=== PATIENT | male | born 1940 | race Caucasian/White ===

== ENCOUNTER 2017-08-28 15:45 | Emergency (ER) | END 2017-08-28 17:35 | disposition home or self-care (01) ==

== ENCOUNTER 2017-09-04 17:01 | Emergency (ER) | payer MEDICARE ==
[~2017-09-04] VITALS: Ht 185.4 cm; Wt 142.0 kg
[~2017-09-04 17:01] MED LIST: ASPI325 PO; ASPI81CH PO; ASPI81EC PO; ATOR20 PO; CARV25; Coq-10100 MG PO; DILT120; DILT120 PO; ENAL10; ENAL5 PO; FAMO20 PO; FINA5 PO; FURO20 PO; FURO40; FURO40 PO; GLIP10; Lisinopril2.5 MG PO; MULTIVITAMIN; NATURAL LUTEIN20 MG PO; NEBI10 PO; Norco 5-325 Ta1 EACH PO; OMEP40CA12; POTCHL10ER PO; PRED20; SULTRIDS; Sulfamethoxazo1 EAC1; TAMS.4ER PO; WARF4 PO
[2017-09-04 17:54] LABS: BASOPHILS ABSOLUTE AUTO 0.06 K/mm3 (0.00-0.23); BASOPHILS PERCENT AUTO 1 % (0-2); EOSINOPHILS ABSOLUTE AUTO 0.12 K/mm3 (0.00-0.68); EOSINOPHILS PERCENT AUTO 1 % (0-6); Hematocrit 37.4 % (37.0-53.0); Hemoglobin 11.2 g/dL (13.5-17.5); IMMATURE GRAN ABSOLUTE AUTO 0.06 K/mm3 (0.00-0.10); IMMATURE GRAN PERCENT AUTO 1 % (0-1); LYMPHOCYTES ABSOLUTE AUTO 1.01 K/mm3 (0.84-5.20); LYMPHOCYTES PERCENT AUTO 12 % (21-46); MONOCYTES ABSOLUTE AUTO 0.97 K/mm3 (0.16-1.47); MONOCYTES PERCENT AUTO 11 % (4-13); Mean Corpuscular HGB 25.7 pg (26.0-34.0); Mean Corpuscular HGB Conc 29.9 g/dL (31.5-36.5); Mean Corpuscular Volume 86 fL (80-100); Mean Platelet Volume 10.6 fL (9.1-12.4); NEUTROPHILS ABSOLUTE AUTO 6.44 K/mm3 (1.96-9.15); NEUTROPHILS PERCENT AUTO 74 % (41-73); Platelet Count 155 K/mm3 (150-400); RDW Coefficient Variation 15.6 % (11.7-14.2); RDW Standard Deviation 48.5 fL (35.1-46.3); Red Blood Cell Count 4.36 M/mm3 (4.30-5.90); White Blood Cell Count 8.66 K/mm3 (4.00-11.30)
[2017-09-04] MEDS ORDERED: NIFE30ER PO (17:58)
[2017-09-04 18:06] LABS: Alanine Aminotransfer (ALT/SGP 14 U/L (12-78); Albumin, Blood 3.2 g/dL (3.4-5.0); Albumin/Globulin Ratio 0.7 (0.8-1.8); Alk Phos 66 U/L (50-136); Anion Gap 10 mmol/L (6-16); Aspartate Aminotrans (AST/SGOT 13 U/L (12-37); Bilirubin, Total 0.5 mg/dL (0.1-1.0); Blood Urea Nitrogen 27 mg/dL (8-24); Bun/Creatinine Ratio 8.2 (12.0-20.0); CO2, Blood 31 mmol/L (21-32); Calcium, Blood 8.4 mg/dL (8.5-10.1); Chloride, Blood 93 mmol/L (98-108); Creatinine, Blood 3.28 mg/dL (0.60-1.20); Globulin, Blood 4.4 g/dL (2.2-4.0); Glomerular Filtration Rate 20 (60-); Glucose, Blood 221 mg/dL (70-99); Magnesium, Blood 2.1 mg/dL (1.6-2.4); Potassium, Blood 3.7 mmol/L (3.5-5.5); Sodium, Blood 134 mmol/L (136-145); Total Protein, Blood 7.6 g/dL (6.4-8.2); Troponin I <0.015 ng/mL (0.000-0.040)
[2017-09-04 18:12] LABS: International Normalized Ratio 1.66; Prothrombin Time Results 17.5 Sec (9.7-11.5)
[2018-04-23] MEDS ORDERED: COENZYME Q-10200 MG PO (19:56)
[2018-04-23] MEDS ORDERED: WARF6 PO (19:59)
== END 2017-09-04 20:17 | disposition home or self-care (01) ==
LOC: ER 17:01
PROVIDERS: Emergency Medicine
DX: R55 Syncope and collapse (principal); E87.8 Other disorders of electrolyte and fluid balance, not elsewhere classified; I10 Essential (primary) hypertension; Z79.899 Other long term (current) drug therapy; Z79.01 Long term (current) use of anticoagulants; Z87.891 Personal history of nicotine dependence
CPT/HCPCS: 80053; 83735; 83880; 84484; 85025; 85610; 93005; 93010; 99283

== ENCOUNTER 2017-12-13 11:13 | Emergency (ER) | payer MEDICARE ==
[~2017-12-13] VITALS: Ht 188 cm; Wt 163.3 kg
[~2017-12-13 11:13] MED LIST changes: +Coumadin1 MG; +FINA5; -FINA5 PO; +NIFE30ER PO; -WARF4 PO
== END 2017-12-13 12:04 | disposition home or self-care (01) ==
LOC: ER 11:13
DX: M25.512 Pain in left shoulder (principal); I10 Essential (primary) hypertension; E11.9 Type 2 diabetes mellitus without complications; Z79.899 Other long term (current) drug therapy; Z79.01 Long term (current) use of anticoagulants
CPT/HCPCS: 73030; 99283

== ENCOUNTER 2018-07-25 13:06 | Emergency (ER) | payer MEDICARE ==
[~2018-07-25] VITALS: Ht 188 cm; Wt 145.2 kg
[~2018-07-25 13:06] MED LIST changes: +COENZYME Q-10200 MG PO; -Coumadin1 MG; -FINA5; +FINA5 PO; +WARF4 PO; +WARF6 PO
[2018-07-25] MEDS ORDERED: FURO40 PO (14:52)
[2018-07-25] MEDS ORDERED: GLIP5 (14:52)
== END 2018-07-25 15:15 | disposition home or self-care (01) ==
LOC: ER 13:06
DX: J40 Bronchitis, not specified as acute or chronic (principal); I10 Essential (primary) hypertension; Z79.01 Long term (current) use of anticoagulants; Z79.899 Other long term (current) drug therapy
CPT/HCPCS: 71046; 99283-25

== ENCOUNTER 2018-10-05 09:04 | Day surgery (SDC) | payer MEDICARE ==
[~2018-10-05] VITALS: Ht 188 cm; Wt 145.5 kg
[~2018-10-05 09:04] MED LIST changes: +GLIP5; +PIOG15 PO; -WARF6 PO
== END 2018-10-05 15:15 | disposition home or self-care (01) ==
LOC: MHTC 09:04
DX: I12.0 Hypertensive chronic kidney disease with stage 5 chronic kidney disease or end stage renal disease (principal); E11.22 Type 2 diabetes mellitus with diabetic chronic kidney disease; N18.6 End stage renal disease; I48.91 Unspecified atrial fibrillation; G47.30 Sleep apnea, unspecified; E66.01 Morbid (severe) obesity due to excess calories; Z99.89 Dependence on other enabling machines and devices; Z99.2 Dependence on renal dialysis; Z88.8 Allergy status to other drugs, medicaments and biological substances; Z79.899 Other long term (current) drug therapy; Z79.01 Long term (current) use of anticoagulants
CPT/HCPCS: J1644; J1940; J7040

== ENCOUNTER 2018-10-11 10:00 | Inpatient (IN) | payer MEDICARE, OTHER ==
[~2018-10-11] VITALS: Ht 188 cm; Wt 146.1 kg
[~2018-10-11 10:00] MED LIST changes: +WARF6 PO
[2018-10-11] MEDS ORDERED: FERRIC CITRATE210 MG PO (10:18)
[2018-10-11 10:27] LABS: BASOPHILS ABSOLUTE AUTO 0.06 K/mm3 (0.00-0.23); BASOPHILS PERCENT AUTO 1 % (0-2); EOSINOPHILS PERCENT AUTO 3 % (0-6); Hematocrit 35.4 % (37.0-53.0); Hemoglobin 10.9 g/dL (13.5-17.5); IMMATURE GRAN ABSOLUTE AUTO 0.08 K/mm3 (0.00-0.10); IMMATURE GRAN PERCENT AUTO 1 % (0-1); LYMPHOCYTES PERCENT AUTO 16 % (21-46); MONOCYTES ABSOLUTE AUTO 1.15 K/mm3 (0.16-1.47); MONOCYTES PERCENT AUTO 12 % (4-13); Mean Corpuscular HGB 26.8 pg (26.0-34.0); Mean Corpuscular HGB Conc 30.8 g/dL (31.5-36.5); Mean Corpuscular Volume 87 fL (80-100); NEUTROPHILS ABSOLUTE AUTO 6.35 K/mm3 (1.96-9.15); NEUTROPHILS PERCENT AUTO 67 % (41-73); Platelet Count 191 K/mm3 (150-400); RDW Coefficient Variation 16.6 % (11.7-14.2); RDW Standard Deviation 52.1 fL (35.1-46.3); Red Blood Cell Count 4.07 M/mm3 (4.30-5.90); White Blood Cell Count 9.44 K/mm3 (4.00-11.30)
[2018-10-11 10:49] LABS: Albumin, Blood 3.3 g/dL (3.4-5.0); Albumin/Globulin Ratio 0.8 (0.8-1.8); Bilirubin, Total 0.5 mg/dL (0.1-1.0); Bun/Creatinine Ratio 10.6 (12.0-20.0); Creatinine, Blood 6.95 mg/dL (0.60-1.20); Globulin, Blood 4.1 g/dL (2.2-4.0); Potassium, Blood 3.8 mmol/L (3.5-5.5); Total Protein, Blood 7.4 g/dL (6.4-8.2)
[2018-10-11 12:34] LABS: Base Excess Venous 6.2 mmol/L; Bicarbonate Venous 27.9 mmol/L (24.0-30.0); PCO2 Venous 60.9 mmHg (38-42); PO2 Venous 42.2 mmHg (38-42); pH Blood Venous 7.33 (7.34-7.37)
[2018-10-11 12:49] LABS: International Normalized Ratio 1.07; Prothrombin Time Results 11.3 Sec (9.7-11.5)
[2018-10-11] MEDS ORDERED: FURO40 PO (13:31)
[2018-10-11] MEDS ORDERED: WARF4 PO (13:33)
[2018-10-11] MEDS ORDERED: PIOG15 PO (16:53)
--- NOTE | 2018-10-11 18:45 | NUR ---
SHIFT SUMMARY TERESA ARRIVED FROM ED AROUND 430PM. DENIES PAIN EXCEPT CHRONIC R KNEE AND SHOULDER PAIN. , SAYS HE FEELS BACK TO BASELINE STRENGTH BACA. SBA TO BR. TELE SHOWED AFIB AT 106. CBG WNL THIS SHIFT. TO HAVE CT TOMORROW AND THEN HD IMMEDIATELY AFTERWARDS PER BLUEPRINT REPRODUCER. WCTM
[2018-10-11 20:31] LABS: Adenovirus Not Detected (NOT DETECT); Coronavirus 229E Not Detected (NOT DETECT); Coronavirus HKU1 Not Detected (NOT DETECT); Coronavirus NL63 Not Detected (NOT DETECT); Coronavirus OC43 Not Detected (NOT DETECT); Human Metapneumovirus Not Detected (NOT DETECT); Human Rhinovirus/Enterovirus Not Detected (NOT DETECT); Influenza A Not Detected (NOT DETECT); Influenza A/H1 Not Detected (NOT DETECT)
[2018-10-11 20:32] LABS: Bordetella pertussis Not Detected (NOT DETECT); Chlamydophila pneumoniae Not Detected (NOT DETECT); Influenza A/2009-H1 Not Detected (NOT DETECT); Influenza A/H3 Not Detected (NOT DETECT); Influenza B Not Detected (NOT DETECT); Mycoplasma pneumoniae Not Detected (NOT DETECT); Parainfluenza Virus 1 Not Detected (NOT DETECT); Parainfluenza Virus 2 Not Detected (NOT DETECT); Parainfluenza Virus 3 Not Detected (NOT DETECT); Parainfluenza Virus 4 Not Detected (NOT DETECT); Respiratory Syncytial Virus Not Detected (NOT DETECT)
--- NOTE | 2018-10-12 04:13 | NUR ---
Pt has slept most of shift without c/o discomfort. O2 on at 2 liters per pt's request. Pt on telemetry- Afib 90-100 with pvc's. Blood sugar at hs was 148 with no coverage needed. Pt to have dialysis in am after having PE test c contrast.
[2018-10-12 05:25] LABS: BASOPHILS ABSOLUTE AUTO 0.05 K/mm3 (0.00-0.23); BASOPHILS PERCENT AUTO 1 % (0-2); EOSINOPHILS ABSOLUTE AUTO 0.35 K/mm3 (0.00-0.68); EOSINOPHILS PERCENT AUTO 4 % (0-6); Hematocrit 36.9 % (37.0-53.0); Hemoglobin 11.1 g/dL (13.5-17.5); IMMATURE GRAN ABSOLUTE AUTO 0.06 K/mm3 (0.00-0.10); IMMATURE GRAN PERCENT AUTO 1 % (0-1); LYMPHOCYTES PERCENT AUTO 20 % (21-46); MONOCYTES ABSOLUTE AUTO 1.17 K/mm3 (0.16-1.47); MONOCYTES PERCENT AUTO 14 % (4-13); Mean Corpuscular HGB 26.4 pg (26.0-34.0); Mean Corpuscular HGB Conc 30.1 g/dL (31.5-36.5); Mean Corpuscular Volume 88 fL (80-100); Mean Platelet Volume 10.9 fL (9.1-12.4); NEUTROPHILS ABSOLUTE AUTO 5.18 K/mm3 (1.96-9.15); NEUTROPHILS PERCENT AUTO 61 % (41-73); Platelet Count 209 K/mm3 (150-400); RDW Coefficient Variation 16.5 % (11.7-14.2); RDW Standard Deviation 53.6 fL (35.1-46.3); White Blood Cell Count 8.51 K/mm3 (4.00-11.30)
[2018-10-12 05:52] LABS: International Normalized Ratio 1.04
[2018-10-12 06:02] LABS: Bun/Creatinine Ratio 11.9 (12.0-20.0); Calcium, Blood 9.5 mg/dL (8.5-10.1); Creatinine, Blood 6.97 mg/dL (0.60-1.20); Potassium, Blood 3.9 mmol/L (3.5-5.5)
--- NOTE | 2018-10-12 14:18 | NUR ---
IV DC'D THE PT HAD ONE IV IN HIS LEFT HAND THAT WAS NOT PATENT, RN DC'D THIS ONCE THE PT CAME BACK FROM DIALYSIS. HE ALSO HAD AN IV IN HIS RIGHT FOREARM THAT WAS REMOVED DURING DIALYSIS. THE PT NOW HAS A NO IV ACCESS NEEDED ORDER.
--- NOTE | 2018-10-12 14:20 | NUR ---
THE PATIENT HAS NO COMPLAINTS OF PAIN, DIZZINESS OR LIGHTHEADED. HE WENT TO DIALYSIS THIS MORNING. HE IS BACK IN HIS HOSPITAL ROOM VISITING WITH HIS SON. NO IV ACCESS IS NEEDED. THE PLAN IS FOR THE PATIENT TO GO TO DIALYSIS AT THE HOSPITAL TOMORROW AND THEN BE DISCHARGED HOME. THE PT HAS TELEMETRY ON, READING AFIB WITH PVC'S AT 97 BPM PER SKEIN [employer] DYER HELPER. THE PT HAD A CT PE STUDY THIS MORNING. PT IS ON RA TODAY BUT WAS REPORTED TO BE SOB LAST NIGHT AND THE RN PUT HIM ON 2L O2 VIA NC. WILL CONTINUE TO MONITOR.
--- NOTE | 2018-10-12 17:27 | NUR ---
RT SET THE PT UP WITH A CPAP. NO COMPLAINTS. WILL CONTINUE TO MONITOR.
--- NOTE | 2018-10-12 21:52 | NUR ---
Insulin verifed by Shruti roberts. Pt got 2 units humalog for blood sugar of 238.
--- NOTE | 2018-10-13 03:44 | NUR ---
shift summary: Pt on cpap at hs but keeps setting the continuous pulse ox off. Pt tosses and turns alot and states that the bed is very uncomfortable. Pt changed to recliner and pt states he is much more comfortable. Pt back on cpap with O2 extension tubing. Pt now appears to be comfortable and is tolerating the cpap well. Pt has not set off the continuous pulse oximeter since changing to recliner.
[2018-10-13 05:15] LABS: BASOPHILS ABSOLUTE AUTO 0.04 K/mm3 (0.00-0.23); BASOPHILS PERCENT AUTO 1 % (0-2); EOSINOPHILS ABSOLUTE AUTO 0.33 K/mm3 (0.00-0.68); EOSINOPHILS PERCENT AUTO 5 % (0-6); Hematocrit 34.8 % (37.0-53.0); Hemoglobin 10.6 g/dL (13.5-17.5); IMMATURE GRAN ABSOLUTE AUTO 0.05 K/mm3 (0.00-0.10); IMMATURE GRAN PERCENT AUTO 1 % (0-1); LYMPHOCYTES ABSOLUTE AUTO 1.61 K/mm3 (0.84-5.20); LYMPHOCYTES PERCENT AUTO 22 % (21-46); MONOCYTES ABSOLUTE AUTO 1.01 K/mm3 (0.16-1.47); MONOCYTES PERCENT AUTO 14 % (4-13); Mean Corpuscular HGB 26.8 pg (26.0-34.0); Mean Corpuscular HGB Conc 30.5 g/dL (31.5-36.5); Mean Corpuscular Volume 88 fL (80-100); NEUTROPHILS ABSOLUTE AUTO 4.27 K/mm3 (1.96-9.15); NEUTROPHILS PERCENT AUTO 59 % (41-73); Platelet Count 179 K/mm3 (150-400); RDW Coefficient Variation 16.3 % (11.7-14.2); RDW Standard Deviation 53.2 fL (35.1-46.3); Red Blood Cell Count 3.95 M/mm3 (4.30-5.90); White Blood Cell Count 7.31 K/mm3 (4.00-11.30)
[2018-10-13 05:29] LABS: International Normalized Ratio 1.17; Prothrombin Time Results 12.2 Sec (9.7-11.5)
[2018-10-13 05:46] LABS: Magnesium, Blood 2.7 mg/dL (1.6-2.4)
[2018-10-13 05:49] LABS: Albumin, Blood 3.1 g/dL (3.4-5.0); Anion Gap 10 mmol/L (6-16); Blood Urea Nitrogen 61 mg/dL (8-24); Bun/Creatinine Ratio 10.4 (12.0-20.0); CO2, Blood 31 mmol/L (21-32); Calcium, Blood 9.3 mg/dL (8.5-10.1); Chloride, Blood 95 mmol/L (98-108); Creatinine, Blood 5.85 mg/dL (0.60-1.20); Glomerular Filtration Rate 10 (60-); Glucose, Blood 110 mg/dL (70-99); Phosphorus, Blood 7.2 mg/dL (2.5-4.9); Potassium, Blood 4.2 mmol/L (3.5-5.5); Sodium, Blood 136 mmol/L (136-145)
--- NOTE | 2018-10-13 13:10 | NUR ---
Met pt in bed and is on dialysis , pt is doing well and may go home today , said the pt., encouraged pt. and offered prayers for the pt.
[2018-10-13] MEDS ORDERED: BISA10S PR (15:33)
[2018-10-13] MEDS ORDERED: DOCU100 PO (15:34)
[2018-10-13] MEDS ORDERED: ONDA4ODT MM (15:34)
[2018-10-13] MEDS ORDERED: SEVEC800 PO (15:34)
== END 2018-10-13 16:07 | disposition home or self-care (01) | DRG 189 ==
LOC: ER 10:00 → MEDS 10:01 → ENPENDDIS 10-13 10:38 → MEDS 10-13 16:07
PROVIDERS: Emergency Medicine; Internal Medicine Nephrology; Pharmacist; ADMIT Hospitalist
PROC: 5A1D70Z Performance of Urinary Filtration, Intermittent, Less than 6 Hours Per Day (ICD-10-PCS; principal; 2018-10-11)
PROC: 5A1D70Z Performance of Urinary Filtration, Intermittent, Less than 6 Hours Per Day (ICD-10-PCS; 2018-10-13)
DX: J96.21 Acute and chronic respiratory failure with hypoxia (principal); N18.6 End stage renal disease; I13.2 Hypertensive heart and chronic kidney disease with heart failure and with stage 5 chronic kidney disease, or end stage renal disease; J98.11 Atelectasis; Z68.43 Body mass index [BMI] 50.0-59.9, adult; E11.22 Type 2 diabetes mellitus with diabetic chronic kidney disease; E87.70 Fluid overload, unspecified; I50.9 Heart failure, unspecified; Z99.2 Dependence on renal dialysis; E66.01 Morbid (severe) obesity due to excess calories; I95.9 Hypotension, unspecified; E78.5 Hyperlipidemia, unspecified; D63.1 Anemia in chronic kidney disease; E83.39 Other disorders of phosphorus metabolism; I48.2 Chronic atrial fibrillation; Z79.01 Long term (current) use of anticoagulants; Z79.4 Long term (current) use of insulin; G47.33 Obstructive sleep apnea (adult) (pediatric); J44.9 Chronic obstructive pulmonary disease, unspecified; K21.9 Gastro-esophageal reflux disease without esophagitis; Z85.46 Personal history of malignant neoplasm of prostate
CPT/HCPCS: 36415; 71046; 71260; 80048; 80053; 80069; 82803; 82947; 83735; 84484; 85014; 85018; 85025; 85610; 87486; 87581; 87633; 87798; 93005; 93010; 94640; 94660; 94761; 94762; Q9967

== ENCOUNTER 2019-11-02 10:07 | Inpatient (IN) | payer MEDICARE, OTHER ==
[~2019-11-02] VITALS: Ht 188 cm; Wt 119.9 kg
[~2019-11-02 10:07] MED LIST changes: +BISA10S PR; +DOCU100 PO; +FERRIC CITRATE210 MG PO; +ONDA4ODT MM; +SEVEC800 PO
[2019-11-02 10:42] LABS: BASOPHILS ABSOLUTE AUTO 0.04 K/mm3 (0.00-0.23); BASOPHILS PERCENT AUTO 0 % (0-2); EOSINOPHILS ABSOLUTE AUTO 0.26 K/mm3 (0.00-0.68); EOSINOPHILS PERCENT AUTO 2 % (0-6); Hematocrit 36.3 % (37.0-53.0); Hemoglobin 11.2 g/dL (13.5-17.5); IMMATURE GRAN ABSOLUTE AUTO 0.06 K/mm3 (0.00-0.10); IMMATURE GRAN PERCENT AUTO 1 % (0-1); LYMPHOCYTES ABSOLUTE AUTO 1.55 K/mm3 (0.84-5.20); LYMPHOCYTES PERCENT AUTO 14 % (21-46); MONOCYTES ABSOLUTE AUTO 1.42 K/mm3 (0.16-1.47); MONOCYTES PERCENT AUTO 13 % (4-13); Mean Corpuscular HGB 26.9 pg (26.0-34.0); Mean Corpuscular HGB Conc 30.9 g/dL (31.5-36.5); Mean Corpuscular Volume 87 fL (80-100); Mean Platelet Volume 10.7 fL (9.1-12.4); NEUTROPHILS ABSOLUTE AUTO 7.64 K/mm3 (1.96-9.15); NEUTROPHILS PERCENT AUTO 70 % (41-73); Platelet Count 224 K/mm3 (150-400); RDW Coefficient Variation 15.7 % (11.7-14.2); RDW Standard Deviation 49.3 fL (35.1-46.3); Red Blood Cell Count 4.17 M/mm3 (4.30-5.90); White Blood Cell Count 10.97 K/mm3 (4.00-11.30)
[2019-11-02 10:59] LABS: Albumin, Blood 3.6 g/dL (3.4-5.0); Albumin/Globulin Ratio 0.7 (0.8-1.8); Bilirubin, Total 0.6 mg/dL (0.1-1.0); Calcium, Blood 9.6 mg/dL (8.5-10.1); Creatinine, Blood 7.75 mg/dL (0.60-1.20); Globulin, Blood 4.9 g/dL (2.2-4.0); International Normalized Ratio 1.67; Magnesium, Blood 3.5 mg/dL (1.6-2.4); Phosphorus, Blood 7.3 mg/dL (2.5-4.9); Prothrombin Time Results 17.4 Sec (9.7-11.5); Total Protein, Blood 8.5 g/dL (6.4-8.2)
[2019-11-02 13:10] LABS: Source, Urine Clean Catch
[2019-11-02 13:15] LABS: Bilirubin, Urine Neg (Neg); Blood, Urine 2+ (Neg); Glucose Qualitative, Urine 2+ (Neg); Ketones, Urine Neg (Neg); Leukocyte Esterase, Urine Neg (Neg); Nitrite, Urine Neg (Neg); Protein, Urine 3+ (Neg); Specific Gravity, Urine 1.015 (1.003-1.022); Urobilinogen, Urine NORM (Normal)
[2019-11-02 13:28] LABS: Appearance, Urine Clear (Clear); Bacteria Not Seen /hpf; Color, Urine Yellow (P-Yellow); Red Blood Cells, Urine 0-2 /hpf (0-2); Squamous Epithelial Cells Rare /hpf (Few); White Blood Cells, Urine Not Seen /hpf (0-5)
--- NOTE | 2019-11-02 17:30 | NUR ---
HE IS CURRENTLY RECEIVING DIALYSIS. BP IS HIGH. HE IS WEAK BUT ABLE TO TRANSFER WITH 1 ASSIST. HE SAYS HE HAS NOT BEEN GOING TO DIALYSIS THIS WEEK BECAUSE HIS RT HIP HURTS TOO MUCH. HE IS DUE FOR A RT HIP REPLACEMENT IN 8 DAYS. ORTHO CONSULT CALLED PER ORDER. HEMODIALYSIS FISTULA IS IN HIS RT.ARM WITH [employer] AND THRILL. RLQ PD CATHETER SITE WITH EXUDATE AND REDNESS AND NO DRESSING. 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 HIS RESPOSE TO ME ABOUT HIS HIP PAIN WAS A LEVEL 1 OR 2 AT REST BUT HIGHER WITH MOVEMENT.
[2019-11-03 04:59] LABS: Hematocrit 35.5 % (37.0-53.0); Hemoglobin 10.9 g/dL (13.5-17.5)
[2019-11-03 05:14] LABS: International Normalized Ratio 1.39; Prothrombin Time Results 14.6 Sec (9.7-11.5)
[2019-11-03 05:22] LABS: Albumin, Blood 3.3 g/dL (3.4-5.0); Anion Gap 11 mmol/L (6-16); Blood Urea Nitrogen 59 mg/dL (8-24); CO2, Blood 26 mmol/L (21-32); Calcium, Blood 9.6 mg/dL (8.5-10.1); Chloride, Blood 98 mmol/L (98-108); Creatinine, Blood 5.91 mg/dL (0.60-1.20); Glomerular Filtration Rate 10 (60-); Glucose, Blood 104 mg/dL (70-99); Magnesium, Blood 3.3 mg/dL (1.6-2.4); Phosphorus, Blood 5.8 mg/dL (2.5-4.9); Sodium, Blood 135 mmol/L (136-145)
--- NOTE | 2019-11-03 05:25 | NUR ---
SHIFT SUMMARY: A/O TO SELF AND SURROUNDINGS. PT THINKS HE IS IN [place]. KNOWS THE REASON HE IS IN HOSPITAL BUT TOLD THIS NURSE HE CRASHED HIS CAR INTO THE HOSPITAL ON HIS WAY TO THE ER. T/F W/ 2 ASSIST, GAIT BELT, AND FWW. GAIT SLOW. PT LIMPING ON R LEG D/T HIP PAIN. EXTRA STRENGTH TYLENOL ADMINISTED EFFECTIVELY. CALLS OUT FOR ASSIST. ENCOURAGED TO USE CALL BUTTON. BED LOW, ALARM ON. NO ACUTE CHANGES. WILL CONT TO MONITOR.
--- NOTE | 2019-11-03 14:50 | NUR ---
PAtient is lying in bed and alert. Patient tells me his career and medical history. Patient explains about his spiritual journey, his family and his need for prayer. I galdly provide prayer. I listen empathically, normalize patient's experience and provide companionship and prayer. Patient responds well and shows signs of an elevated mood. I will continue to remain available to patient and family.
--- NOTE | 2019-11-03 15:13 | NUR ---
SHIFT SUMMARY PT IS A/O X 3 WITH SOME MILD CONFUSION BUT DOES ANSWER QUESTIONS APPROPRIATELY. HE HAD HIS RIGHT HIP X-RAY THIS MORNING AND DR PIPER CAME TO SEE HIM AT THE BEDSIDE FOR ORTHO CONSULT. NO DIALYSIS TODAY PER DR CHISHOLM. HIS MOST RECENT INR WAS 1.39 AND THE PHARMACY IS DOSING HIS COUMADIN. HE HAS NO S/S OF ABNORMAL BRUISING OR BLEEDING. OK TO GIVE TONIGHTS DOSE PER DR PIPER. THE DATE OF HIS SURGERY IS STILL UNKNOWN. PT IS ABLE TO MAKE HIS NEEDS KNOWN BUT THE BED ALARM IS ON FOR SAFETY DUE TO HIS FORGETFULNESS AT TIMES. HE IS A X 1-2 ASSIST WITH FWW TO TOILET AND TRANSFER FROM BED TO W/C. HIS CALL LIGHT IS IN REACH.
[2019-11-04 04:54] LABS: Hematocrit 32.3 % (37.0-53.0); Hemoglobin 10.1 g/dL (13.5-17.5)
[2019-11-04 05:11] LABS: International Normalized Ratio 1.23
[2019-11-04 05:13] LABS: Anion Gap 11 mmol/L (6-16); Blood Urea Nitrogen 68 mg/dL (8-24); Bun/Creatinine Ratio 10.7 (12.0-20.0); CO2, Blood 25 mmol/L (21-32); Calcium, Blood 9.3 mg/dL (8.5-10.1); Chloride, Blood 98 mmol/L (98-108); Creatinine, Blood 6.37 mg/dL (0.60-1.20); Glomerular Filtration Rate 9 (60-); Glucose, Blood 98 mg/dL (70-99); Phosphorus, Blood 5.9 mg/dL (2.5-4.9); Potassium, Blood 4.3 mmol/L (3.5-5.5); Sodium, Blood 134 mmol/L (136-145)
--- NOTE | 2019-11-04 06:36 | NUR ---
SHIFT SUMMARY: 79 Y/O MALE RESTED COMFORTABLY ALL SHIFT; ALERT AND ORIETED X 2, ABLE TO FOLLOW ALL SIMPLE VERBAL COMMANDS; DENIES NEED FOR PAIN; PT REQUIRED FREQUENT REDIRECTION HE TENDED TO LAY LEGS OFF FROM FROM AT TIMES; PT SCHEDULED FOR POSSIBLE SURGERY TO RIGHT HIP ON 11/06/19; BED ALARM APPLIED; BED LOW POSITION WITH CALL LIGHT AT SIDE.
--- NOTE | 2019-11-04 16:22 | NUR ---
PT WAS OUT FOR DIALYSIS AT 1300 AND CAME BACK AT 1600.
--- NOTE | 2019-11-04 17:15 | NUR ---
PT STARTED OUT SHIFT AOX3 WITH CONFUSION AND WAS VERY TIRED AND SLEEPY. PT WAS INCONTENENT OF URINE. PT SLEEP MOST OF THE MORNING AND THEN WENT TO DIALYSIS. PT WAS MUCH MORE AWAKE AND AOX4 WHEN ARRIVING BACK TO FLOOR. PT PLEASANT AND COOPERATIVE OF CARE. WILL CONTINUE TO MONITOR.
--- NOTE | 2019-11-05 04:20 | NUR ---
SUMMARY PT FELL ASLEEP EARLY IN SHIFT. PT WAS FOUND TO BE HAVE SPO2 IN 70'S. PT REPORTED HE USES A CPAP. RT CALLED AND CPAP WAS ORDERED. PT RESPONDED WELL W/ CPAP. DR BOOTHE CAME TO SEE PT. DR BOOTHE ORDERED CXR, COVID R/OUT. PT PLACED IN ENHANCED ISOLATION PRECAUTIONS. PT HAS BEEN SLEEPING WELL. THIS AM PT TOOK OFF CPAP DUE TO "LEAKING". PT AGREED TO USE NC @ 2LPM. PT CURRENTLY SLEEPING IN NO DISTRESS BREATHING EASY. CALL LIGHT IN REACH AND BED ALARM ON.
[2019-11-05 05:30] LABS: BASOPHILS ABSOLUTE AUTO 0.04 K/mm3 (0.00-0.23); BASOPHILS PERCENT AUTO 0 % (0-2); EOSINOPHILS ABSOLUTE AUTO 0.19 K/mm3 (0.00-0.68); EOSINOPHILS PERCENT AUTO 2 % (0-6); Hematocrit 32.1 % (37.0-53.0); Hemoglobin 9.9 g/dL (13.5-17.5); IMMATURE GRAN ABSOLUTE AUTO 0.03 K/mm3 (0.00-0.10); IMMATURE GRAN PERCENT AUTO 0 % (0-1); LYMPHOCYTES ABSOLUTE AUTO 1.38 K/mm3 (0.84-5.20); LYMPHOCYTES PERCENT AUTO 13 % (21-46); MONOCYTES ABSOLUTE AUTO 1.43 K/mm3 (0.16-1.47); MONOCYTES PERCENT AUTO 14 % (4-13); Mean Corpuscular HGB 26.4 pg (26.0-34.0); Mean Corpuscular HGB Conc 30.8 g/dL (31.5-36.5); Mean Corpuscular Volume 86 fL (80-100); Mean Platelet Volume 10.2 fL (9.1-12.4); NEUTROPHILS PERCENT AUTO 70 % (41-73); Platelet Count 202 K/mm3 (150-400); RDW Coefficient Variation 15.3 % (11.7-14.2); RDW Standard Deviation 48.1 fL (35.1-46.3); Red Blood Cell Count 3.75 M/mm3 (4.30-5.90); White Blood Cell Count 10.27 K/mm3 (4.00-11.30)
[2019-11-05 05:53] LABS: Magnesium, Blood 2.8 mg/dL (1.6-2.4)
[2019-11-05 05:54] LABS: Albumin, Blood 2.8 g/dL (3.4-5.0); Anion Gap 8 mmol/L (6-16); Blood Urea Nitrogen 45 mg/dL (8-24); Bun/Creatinine Ratio 9.4 (12.0-20.0); CO2, Blood 29 mmol/L (21-32); Calcium, Blood 9.2 mg/dL (8.5-10.1); Chloride, Blood 99 mmol/L (98-108); Creatinine, Blood 4.77 mg/dL (0.60-1.20); Glomerular Filtration Rate 13 (60-); Glucose, Blood 109 mg/dL (70-99); Phosphorus, Blood 4.6 mg/dL (2.5-4.9); Potassium, Blood 4.1 mmol/L (3.5-5.5); Sodium, Blood 136 mmol/L (136-145)
[2019-11-05 06:02] LABS: International Normalized Ratio 1.17; Prothrombin Time Results 12.4 Sec (9.7-11.5)
--- NOTE | 2019-11-05 15:19 | NUR ---
DIALYSIS DR CHISHOLM ASKED ME TO RUN PT FOR 5-6 HOURS OR TAKE HER OFF AND RUN HER AGAIN AFTER AN HOUR OR SO. (2-4 HOUR RUNS}. HE SAID HE WANTED TO GET MORE FLUID OFF. PT'S BP IS VERY SPORADIC. ASKED HIM ABOUT PUFING AND HE SAID THAT WAS OK. RAN HER 1 1/2 HOURS ON PUF BVT HER BP STARTED STAYING IN THE 60-70. DC'ED TX WITH UF OF 5 LITERS.
--- NOTE | 2019-11-05 17:06 | NUR ---
PT IS AO TODAY AND MUCH MORE ALERT. PT WAS NOT LETHARGIC LIKE HE WAS PRIOR TO DIALYSIS YESTERDAY. PT TREATED FOR R HIP PAIN PER EMAR. PT USING URINAL AND BED BEE TODAY. NO DISTESS NOTED AND PLEASANT WITH CARE. WILL CONTINUE TO MONITOR.
--- NOTE | 2019-11-05 19:05 | NUR ---
ASSUMED CARE RECEIVED REPORT FROM LAYO WOLF. ASSUMED CARE OF PT. RESTING COMFORTABLY AT THIS TIME, NO S/S ACUTE DISTRESS NOTED. DENIES NEEDS AT THIS TIME. CALL LIGHT IN REACH, BED ALARM ON. WILL CONTINUE TO MONITOR.
--- NOTE | 2019-11-06 04:43 | NUR ---
SHIFT SUMMARY PT REMAINS ASLEEP AT THIS TIME, NO S/S ACUTE DISTRESS NOTED. WORE CPAP T/O NIGHT, O2 SATS BETWEEN 88-97% WITH 2L BLEED IN. OCCASIONAL EPISODES OF O2 DESATURATION WHEN PT REMOVING CPAP, THIS RN IN ROOM REMINDING PT TO KEEP IT ON TO HELP HIM BREATHE. PT RE-DIRECTABLE AND COOPERATIVE WITH CARE. PT NPO SINCE MIDNIGHT FOR PROCEDURE THIS AM, ANTICOAGULATION HELD PER ORDERS. TEST FOR R/O COVID-19 RESULTED NEGATIVE, PT REMAINS ASYMPTOMATIC. DENIES NEEDS AT THIS TIME, CALL LIGHT, POSSESSIONS IN REACH, BED IN LOWEST POSITION WITH ALARM ON. WILL CONTINUE TO MONITOR UNTIL DAY RN ASSUMES CARE.
[2019-11-06 05:18] LABS: Hemoglobin 9.6 g/dL (13.5-17.5); Mean Corpuscular HGB 26.7 pg (26.0-34.0); Mean Corpuscular Volume 86 fL (80-100); Platelet Count 210 K/mm3 (150-400); RDW Coefficient Variation 15.3 % (11.7-14.2); RDW Standard Deviation 48.8 fL (35.1-46.3); White Blood Cell Count 10.69 K/mm3 (4.00-11.30)
[2019-11-06 05:32] LABS: International Normalized Ratio 1.15; Prothrombin Time Results 12.2 Sec (9.7-11.5)
[2019-11-06 05:43] LABS: Bun/Creatinine Ratio 10.8 (12.0-20.0); Calcium, Blood 9.2 mg/dL (8.5-10.1); Creatinine, Blood 5.19 mg/dL (0.60-1.20); Potassium, Blood 4.1 mmol/L (3.5-5.5)
--- NOTE | 2019-11-06 10:07 | NUR ---
PATIENT TO OR FOR A R TOTAL HIP. REPORT GIVEN TO LAYO CARLISLE ON POST SURGICAL. PATIENT WILL GO TO ROOM 217 POST OP.
--- NOTE | 2019-11-06 17:56 | NUR ---
SHIFT SUMMARY PT A&OX4, VSS, S/P R TOTAL HIP, AQUACEL CDI, RETURNED FROM SURGERY 1430, BEDREST. PAIN MANAGED WITH 10 MG OXY AND TYLENOL. DADA PO, DENIES N&V. VOIDING. WILL REPORT TO ONCOMING NOC RN.
[2019-11-07 04:39] LABS: Hematocrit 30.7 % (37.0-53.0); Hemoglobin 9.4 g/dL (13.5-17.5)
[2019-11-07 04:54] LABS: International Normalized Ratio 1.13
[2019-11-07 04:59] LABS: Albumin, Blood 2.7 g/dL (3.4-5.0); Anion Gap 7 mmol/L (6-16); Blood Urea Nitrogen 61 mg/dL (8-24); Bun/Creatinine Ratio 11.2 (12.0-20.0); CO2, Blood 25 mmol/L (21-32); Calcium, Blood 9.2 mg/dL (8.5-10.1); Chloride, Blood 100 mmol/L (98-108); Creatinine, Blood 5.43 mg/dL (0.60-1.20); Glomerular Filtration Rate 11 (60-); Glucose, Blood 117 mg/dL (70-99); Magnesium, Blood 2.7 mg/dL (1.6-2.4); Phosphorus, Blood 5.9 mg/dL (2.5-4.9); Potassium, Blood 4.7 mmol/L (3.5-5.5); Sodium, Blood 132 mmol/L (136-145)
--- NOTE | 2019-11-07 18:06 | NUR ---
SHIFT SUMMARY PT A&O2-3, OCC CONFUSION, CBG CNI. POD1 R TOTAL HIP, AQUACEL CHANGED TODAY AFTER PT REMOVED IT. AMB 2 MAX ASSIST WITH FWW & GB TO CHAIR AND BSC. PT DID AMBULATE TO BRP WITH PT/OT, BUT WAS VERY UNSTEADY AND CONCERN FOR FALL RISK. DIALYSIS TODAY. DADA PO, DENIES N&V. LOW UO, BLADDER SCAN, WILL STRAIGHT CATH PT. PAIN MANAGED WITH 10 MG OXY AND TYLENOL. WILL REPORT TO ONCOMING MIRLANDE VASQUES.
[2019-11-08 04:28] LABS: BASOPHILS ABSOLUTE AUTO 0.03 K/mm3 (0.00-0.23); BASOPHILS PERCENT AUTO 0 % (0-2); EOSINOPHILS ABSOLUTE AUTO 0.28 K/mm3 (0.00-0.68); EOSINOPHILS PERCENT AUTO 3 % (0-6); Hematocrit 27.7 % (37.0-53.0); Hemoglobin 8.4 g/dL (13.5-17.5); IMMATURE GRAN ABSOLUTE AUTO 0.04 K/mm3 (0.00-0.10); IMMATURE GRAN PERCENT AUTO 0 % (0-1); LYMPHOCYTES ABSOLUTE AUTO 1.45 K/mm3 (0.84-5.20); LYMPHOCYTES PERCENT AUTO 16 % (21-46); MONOCYTES ABSOLUTE AUTO 1.33 K/mm3 (0.16-1.47); MONOCYTES PERCENT AUTO 15 % (4-13); Mean Corpuscular HGB 26.3 pg (26.0-34.0); Mean Corpuscular HGB Conc 30.3 g/dL (31.5-36.5); Mean Corpuscular Volume 87 fL (80-100); Mean Platelet Volume 10.2 fL (9.1-12.4); NEUTROPHILS ABSOLUTE AUTO 5.96 K/mm3 (1.96-9.15); NEUTROPHILS PERCENT AUTO 66 % (41-73); Platelet Count 221 K/mm3 (150-400); RDW Coefficient Variation 15.2 % (11.7-14.2); RDW Standard Deviation 48.6 fL (35.1-46.3); Red Blood Cell Count 3.19 M/mm3 (4.30-5.90); White Blood Cell Count 9.09 K/mm3 (4.00-11.30)
[2019-11-08 04:42] LABS: International Normalized Ratio 1.16; Prothrombin Time Results 12.3 Sec (9.7-11.5)
[2019-11-08 04:46] LABS: Albumin, Blood 2.5 g/dL (3.4-5.0); Anion Gap 7 mmol/L (6-16); Blood Urea Nitrogen 46 mg/dL (8-24); Bun/Creatinine Ratio 9.4 (12.0-20.0); CO2, Blood 29 mmol/L (21-32); Calcium, Blood 8.9 mg/dL (8.5-10.1); Chloride, Blood 97 mmol/L (98-108); Creatinine, Blood 4.91 mg/dL (0.60-1.20); Glomerular Filtration Rate 12 (60-); Glucose, Blood 118 mg/dL (70-99); Magnesium, Blood 2.6 mg/dL (1.6-2.4); Phosphorus, Blood 5.7 mg/dL (2.5-4.9); Sodium, Blood 133 mmol/L (136-145)
--- NOTE | 2019-11-08 06:07 | NUR ---
SHIFT SUMMMARY POD # 2 RIGHT PETROS, AQUACEL DRESSING C.D.I. ABD PERITONEAL CATH APPEARS C.D.I. PT A/OX2-3, PLEASANT AND COOPERATIVE. APPEARS TO HAVE SLEPT WELL T/O SHIFT. CPAP AND CONT BIOX IN PLACE. NO ACUTE CHANGES. DADA PO INTAKE. NO URINE OUTPUT, BLADDER SCAN OF 137 THIS MORNING. WILL CONT TO MONITOR AND GIVE REPORT TO ONCOMING RN.
--- NOTE | 2019-11-08 06:23 | NUR ---
DR. CHISHOLM ROUNDING DR. CHISHOLM IN TO SEE PT AT THIS TIME. DOCTOR REQUESTS 1 UNIT RBC DURING DIALYSIS. PT AWARE AND VERBALIZED UNDERSTANDING.
--- NOTE | 2019-11-08 10:42 | NUR ---
assumed care of pt, recvd report from previous RN Mer. pt sitting up in chair, rates pain at 3/10, will medicate per mar
--- NOTE | 2019-11-08 16:40 | NUR ---
provided report to receiving nurse at [facility]. pt's peripheral IV removed wnl, pt bladder scan with 518 ml, straight catheter retrieving approx 520 ml out. pt's belongings gathered. pt expressed concern over his wallet. nursing staff checked room thoroughly, called medical floor to inquire, no security ticket on chart, called security to see if they house pt's wallet. Security reports no ticket made, no wallet in their safe. This RN called pt's significant other twice, no answer. left message for SA re: pt's transfer to SNF and to inquire if she has the wallet. pt transported via wheelchair with belongings to wheelchair van transport
== END 2019-11-08 16:40 | DRG 981 ==
LOC: ER 10:07 → MEDS 12:44 → SURS 12:44 → MEDS 14:26 → SURS 11-06 09:59
PROVIDERS: Emergency Medicine; Internal Medicine; Internal Medicine Nephrology; Nurse Practitioner Acute Care; Orthopaedic Surgery; ADMIT Internal Medicine
PROC: 5A09357 Assistance with Respiratory Ventilation, Less than 24 Consecutive Hours, Continuous Positive Airway Pressure (ICD-10-PCS; principal; 2019-11-04)
PROC: 8E0ZXY6 Isolation (ICD-10-PCS; 2019-11-04)
PROC: 0SR903Z Replacement of Right Hip Joint with Ceramic Synthetic Substitute, Open Approach (ICD-10-PCS; 2019-11-06)
DX: I13.2 Hypertensive heart and chronic kidney disease with heart failure and with stage 5 chronic kidney disease, or end stage renal disease (principal); N18.6 End stage renal disease; G92 Toxic encephalopathy; I48.20 Chronic atrial fibrillation, unspecified; I50.32 Chronic diastolic (congestive) heart failure; E87.1 Hypo-osmolality and hyponatremia; N25.81 Secondary hyperparathyroidism of renal origin; Z68.43 Body mass index [BMI] 50.0-59.9, adult; M87.051 Idiopathic aseptic necrosis of right femur; J96.10 Chronic respiratory failure, unspecified whether with hypoxia or hypercapnia; M25.512 Pain in left shoulder; Z99.2 Dependence on renal dialysis; E11.22 Type 2 diabetes mellitus with diabetic chronic kidney disease; E87.70 Fluid overload, unspecified; E66.01 Morbid (severe) obesity due to excess calories; Z85.46 Personal history of malignant neoplasm of prostate; Z79.01 Long term (current) use of anticoagulants; E88.09 Other disorders of plasma-protein metabolism, not elsewhere classified
CPT/HCPCS: 36415; 71045; 72170; 73502; 73700; 80048; 80053; 80069; 81001; 82947; 83036; 83735; 84100; 85014; 85018; 85025; 85027; 85610; 86850; 86900; 86901; 88300; 93005; 93010; 94660; 94762; 96372; 97110; 97116; 97162; 97164; 97166; 97530; 97535; 99285-25; A9270-GY; C1776; G0257; G0378; J0171; J0690; J0735; J0881; J1644; J2370; J2405; J2704; J2710; J2765; J2795; J3010; J7030; U0003

== ENCOUNTER 2019-11-23 13:32 | Emergency (ER) | payer MEDICARE, OTHER ==
[~2019-11-23] VITALS: Ht 188 cm; Wt 117.9 kg
[2019-11-23 14:14] LABS: BASOPHILS ABSOLUTE AUTO 0.05 K/mm3 (0.00-0.23); BASOPHILS PERCENT AUTO 0 % (0-2); EOSINOPHILS ABSOLUTE AUTO 0.19 K/mm3 (0.00-0.68); EOSINOPHILS PERCENT AUTO 2 % (0-6); Hematocrit 35.1 % (37.0-53.0); Hemoglobin 10.3 g/dL (13.5-17.5); IMMATURE GRAN PERCENT AUTO 1 % (0-1); LYMPHOCYTES ABSOLUTE AUTO 1.89 K/mm3 (0.84-5.20); LYMPHOCYTES PERCENT AUTO 15 % (21-46); MONOCYTES ABSOLUTE AUTO 1.34 K/mm3 (0.16-1.47); MONOCYTES PERCENT AUTO 11 % (4-13); Mean Corpuscular HGB 25.2 pg (26.0-34.0); Mean Corpuscular HGB Conc 29.3 g/dL (31.5-36.5); Mean Corpuscular Volume 86 fL (80-100); Mean Platelet Volume 9.8 fL (9.1-12.4); NEUTROPHILS PERCENT AUTO 71 % (41-73); Platelet Count 308 K/mm3 (150-400); RDW Coefficient Variation 15.7 % (11.7-14.2); RDW Standard Deviation 49.5 fL (35.1-46.3); Red Blood Cell Count 4.08 M/mm3 (4.30-5.90); White Blood Cell Count 12.27 K/mm3 (4.00-11.30)
[2019-11-23 14:32] LABS: Albumin, Blood 3.2 g/dL (3.4-5.0); Albumin/Globulin Ratio 0.6 (0.8-1.8); Bilirubin, Total 0.6 mg/dL (0.1-1.0); Bun/Creatinine Ratio 6.7 (12.0-20.0); Calcium, Blood 9.7 mg/dL (8.5-10.1); Creatinine, Blood 2.7 mg/dL (0.60-1.20); Globulin, Blood 5.8 g/dL (2.2-4.0); Potassium, Blood 3.3 mmol/L (3.5-5.5)
[2019-11-23 16:00] LABS: Source, Urine Catheter
[2019-11-23 16:05] LABS: Bilirubin, Urine Neg (Neg); Blood, Urine 5+ (Neg); Glucose Qualitative, Urine Neg (Neg); Ketones, Urine Neg (Neg); Leukocyte Esterase, Urine 3+ (Neg); Nitrite, Urine Neg (Neg); Protein, Urine 3+ (Neg); Urobilinogen, Urine NORM (Normal)
[2019-11-23 16:15] LABS: Appearance, Urine Hazy (Clear); Color, Urine Yellow (P-Yellow)
[2019-11-23 16:20] LABS: Bacteria Many /hpf; Red Blood Cells, Urine TNTC /hpf (0-2); Squamous Epithelial Cells Not Seen /hpf (Few); White Blood Cells, Urine TNTC /hpf (0-5)
[2019-11-23] MEDS ORDERED: CEPH500 PO (16:57)
== END 2019-11-23 18:50 | disposition home or self-care (01) ==
LOC: ER 13:32
PROVIDERS: Emergency Medicine
DX: N39.0 Urinary tract infection, site not specified (principal); R33.9 Retention of urine, unspecified; I10 Essential (primary) hypertension; Z85.46 Personal history of malignant neoplasm of prostate; Z87.891 Personal history of nicotine dependence; Z96.641 Presence of right artificial hip joint; Z79.899 Other long term (current) drug therapy
CPT/HCPCS: 36415; 51702; 51798; 80053; 81001; 83690; 85025; 87077; 87086; 87186; 96365-59; 99284-25; J0696

== ENCOUNTER 2020-02-20 12:04 | Inpatient (IN) | payer MEDICARE, OTHER ==
[~2020-02-20] VITALS: Ht 188 cm; Wt 113.2 kg
[~2020-02-20 12:04] MED LIST changes: +CEPH500 PO
[2020-02-20 12:47] LABS: BASOPHILS ABSOLUTE AUTO 0.04 K/mm3 (0.00-0.23); BASOPHILS PERCENT AUTO 0 % (0-2); EOSINOPHILS PERCENT AUTO 1 % (0-6); Hematocrit 34.4 % (37.0-53.0); Hemoglobin 10.4 g/dL (13.5-17.5); IMMATURE GRAN ABSOLUTE AUTO 0.11 K/mm3 (0.00-0.10); IMMATURE GRAN PERCENT AUTO 1 % (0-1); LYMPHOCYTES ABSOLUTE AUTO 1.89 K/mm3 (0.84-5.20); LYMPHOCYTES PERCENT AUTO 15 % (21-46); MONOCYTES ABSOLUTE AUTO 1.36 K/mm3 (0.16-1.47); MONOCYTES PERCENT AUTO 11 % (4-13); Mean Corpuscular HGB 26.8 pg (26.0-34.0); Mean Corpuscular HGB Conc 30.2 g/dL (31.5-36.5); Mean Corpuscular Volume 89 fL (80-100); Mean Platelet Volume 10.2 fL (9.1-12.4); NEUTROPHILS ABSOLUTE AUTO 8.87 K/mm3 (1.96-9.15); NEUTROPHILS PERCENT AUTO 72 % (41-73); Platelet Count 234 K/mm3 (150-400); RDW Coefficient Variation 16.3 % (11.7-14.2); Red Blood Cell Count 3.88 M/mm3 (4.30-5.90); White Blood Cell Count 12.37 K/mm3 (4.00-11.30)
[2020-02-20 13:24] LABS: Albumin, Blood 3.4 g/dL (3.4-5.0); Albumin/Globulin Ratio 0.6 (0.8-1.8); Bilirubin, Total 0.7 mg/dL (0.1-1.0); Bun/Creatinine Ratio 11.3 (12.0-20.0); Calcium, Blood 10.2 mg/dL (8.5-10.1); Creatinine, Blood 6.3 mg/dL (0.60-1.20); Globulin, Blood 5.3 g/dL (2.2-4.0); Potassium, Blood 4.6 mmol/L (3.5-5.5); Total Protein, Blood 8.7 g/dL (6.4-8.2); Troponin I 0.045 ng/mL (0.000-0.040)
[2020-02-20 13:48] LABS: International Normalized Ratio 1.17; Prothrombin Time Results 12.4 Sec (9.7-11.5)
[2020-02-20] MEDS ORDERED: AURYXIA210 MG PO (14:01)
[2020-02-20] MEDS ORDERED: OXYC5 PO (14:08)
[2020-02-20] MEDS ORDERED: IBUPROFEN200 M1 PO (14:08)
[2020-02-21 04:08] LABS: BASOPHILS ABSOLUTE AUTO 0.06 K/mm3 (0.00-0.23); BASOPHILS PERCENT AUTO 1 % (0-2); EOSINOPHILS ABSOLUTE AUTO 0.15 K/mm3 (0.00-0.68); EOSINOPHILS PERCENT AUTO 1 % (0-6); Hematocrit 32.7 % (37.0-53.0); Hemoglobin 9.8 g/dL (13.5-17.5); IMMATURE GRAN ABSOLUTE AUTO 0.11 K/mm3 (0.00-0.10); IMMATURE GRAN PERCENT AUTO 1 % (0-1); LYMPHOCYTES ABSOLUTE AUTO 1.78 K/mm3 (0.84-5.20); LYMPHOCYTES PERCENT AUTO 15 % (21-46); MONOCYTES ABSOLUTE AUTO 1.42 K/mm3 (0.16-1.47); MONOCYTES PERCENT AUTO 12 % (4-13); Mean Corpuscular HGB 26.4 pg (26.0-34.0); Mean Corpuscular Volume 88 fL (80-100); Mean Platelet Volume 9.9 fL (9.1-12.4); NEUTROPHILS ABSOLUTE AUTO 8.13 K/mm3 (1.96-9.15); NEUTROPHILS PERCENT AUTO 70 % (41-73); Platelet Count 219 K/mm3 (150-400); RDW Coefficient Variation 15.9 % (11.7-14.2); RDW Standard Deviation 52.4 fL (35.1-46.3); Red Blood Cell Count 3.71 M/mm3 (4.30-5.90); White Blood Cell Count 11.65 K/mm3 (4.00-11.30)
[2020-02-21 04:31] LABS: Albumin, Blood 3.1 g/dL (3.4-5.0); Anion Gap 7 mmol/L (6-16); Blood Urea Nitrogen 49 mg/dL (8-24); Bun/Creatinine Ratio 9.8 (12.0-20.0); CO2, Blood 29 mmol/L (21-32); Calcium, Blood 9.4 mg/dL (8.5-10.1); Chloride, Blood 101 mmol/L (98-108); Creatinine, Blood 5.02 mg/dL (0.60-1.20); Glomerular Filtration Rate 12 (60-); Glucose, Blood 92 mg/dL (70-99); Magnesium, Blood 2.3 mg/dL (1.6-2.4); Phosphorus, Blood 5.3 mg/dL (2.5-4.9); Sodium, Blood 137 mmol/L (136-145)
[2020-02-21 13:23] LABS: Source, Urine Catheter
[2020-02-21 13:29] LABS: Bilirubin, Urine Neg (Neg); Blood, Urine 3+ (Neg); Glucose Qualitative, Urine Neg (Neg); Ketones, Urine Neg (Neg); Leukocyte Esterase, Urine Neg (Neg); Nitrite, Urine Neg (Neg); Protein, Urine 3+ (Neg); Specific Gravity, Urine 1.015 (1.003-1.022); Urobilinogen, Urine NORM (Normal)
[2020-02-21 13:41] LABS: Appearance, Urine Clear (Clear); Color, Urine Pale Yellow (P-Yellow)
[2020-02-21 13:44] LABS: Squamous Epithelial Cells Few /hpf (Few); White Blood Cells, Urine 0-2 /hpf (0-5)
[2020-02-21 13:45] LABS: Bacteria Few /hpf
[2020-02-22 03:59] LABS: BASOPHILS ABSOLUTE AUTO 0.07 K/mm3 (0.00-0.23); BASOPHILS PERCENT AUTO 1 % (0-2); EOSINOPHILS ABSOLUTE AUTO 0.14 K/mm3 (0.00-0.68); EOSINOPHILS PERCENT AUTO 1 % (0-6); Hematocrit 36.5 % (37.0-53.0); Hemoglobin 10.8 g/dL (13.5-17.5); IMMATURE GRAN ABSOLUTE AUTO 0.09 K/mm3 (0.00-0.10); IMMATURE GRAN PERCENT AUTO 1 % (0-1); LYMPHOCYTES ABSOLUTE AUTO 2.19 K/mm3 (0.84-5.20); LYMPHOCYTES PERCENT AUTO 17 % (21-46); MONOCYTES ABSOLUTE AUTO 1.68 K/mm3 (0.16-1.47); MONOCYTES PERCENT AUTO 13 % (4-13); Mean Corpuscular HGB 26.3 pg (26.0-34.0); Mean Corpuscular HGB Conc 29.6 g/dL (31.5-36.5); Mean Corpuscular Volume 89 fL (80-100); NEUTROPHILS ABSOLUTE AUTO 9.07 K/mm3 (1.96-9.15); NEUTROPHILS PERCENT AUTO 69 % (41-73); Platelet Count 224 K/mm3 (150-400); RDW Coefficient Variation 15.9 % (11.7-14.2); Red Blood Cell Count 4.11 M/mm3 (4.30-5.90); White Blood Cell Count 13.24 K/mm3 (4.00-11.30)
[2020-02-22 04:14] LABS: International Normalized Ratio 1.24; Prothrombin Time Results 13.1 Sec (9.7-11.5)
[2020-02-22 04:31] LABS: Albumin, Blood 3.2 g/dL (3.4-5.0); Anion Gap 9 mmol/L (6-16); Blood Urea Nitrogen 67 mg/dL (8-24); Bun/Creatinine Ratio 10.7 (12.0-20.0); CO2, Blood 24 mmol/L (21-32); Calcium, Blood 9.6 mg/dL (8.5-10.1); Chloride, Blood 102 mmol/L (98-108); Creatinine, Blood 6.28 mg/dL (0.60-1.20); Glomerular Filtration Rate 9 (60-); Glucose, Blood 99 mg/dL (70-99); Magnesium, Blood 2.5 mg/dL (1.6-2.4); Phosphorus, Blood 6.2 mg/dL (2.5-4.9); Potassium, Blood 4.2 mmol/L (3.5-5.5); Sodium, Blood 135 mmol/L (136-145)
[2020-02-23 05:24] LABS: BASOPHILS ABSOLUTE AUTO 0.05 K/mm3 (0.00-0.23); BASOPHILS PERCENT AUTO 0 % (0-2); EOSINOPHILS PERCENT AUTO 3 % (0-6); Hematocrit 35.6 % (37.0-53.0); Hemoglobin 10.5 g/dL (13.5-17.5); IMMATURE GRAN ABSOLUTE AUTO 0.07 K/mm3 (0.00-0.10); IMMATURE GRAN PERCENT AUTO 1 % (0-1); LYMPHOCYTES ABSOLUTE AUTO 1.85 K/mm3 (0.84-5.20); LYMPHOCYTES PERCENT AUTO 16 % (21-46); MONOCYTES ABSOLUTE AUTO 1.52 K/mm3 (0.16-1.47); MONOCYTES PERCENT AUTO 13 % (4-13); Mean Corpuscular HGB 25.7 pg (26.0-34.0); Mean Corpuscular HGB Conc 29.5 g/dL (31.5-36.5); Mean Corpuscular Volume 87 fL (80-100); Mean Platelet Volume 9.8 fL (9.1-12.4); NEUTROPHILS ABSOLUTE AUTO 8.17 K/mm3 (1.96-9.15); NEUTROPHILS PERCENT AUTO 68 % (41-73); Platelet Count 241 K/mm3 (150-400); RDW Coefficient Variation 15.7 % (11.7-14.2); RDW Standard Deviation 50.4 fL (35.1-46.3); Red Blood Cell Count 4.08 M/mm3 (4.30-5.90); White Blood Cell Count 11.96 K/mm3 (4.00-11.30)
[2020-02-23 05:37] LABS: International Normalized Ratio 1.41; Prothrombin Time Results 14.8 Sec (9.7-11.5)
[2020-02-23] MEDS ORDERED: ASPI325 PO (14:49)
[2020-02-23] MEDS ORDERED: ACET325 PO (14:49)
[2020-02-23] MEDS ORDERED: HUMALOG KW100 UNIT/1 SC (14:51)
[2020-02-23] MEDS ORDERED: LEVOFLOXACIN250 MG PO (14:52)
[2020-02-23] MEDS ORDERED: ONDA4ODT MM (14:52)
[2020-02-23] MEDS ORDERED: Metoprolol Succ25 MG PO (14:52)
[2020-02-23] MEDS ORDERED: Acidophilus1 EAC1 PO (14:54)
== END 2020-02-23 16:40 | DRG 64 ==
LOC: ER 12:04 → PCU 15:14 → MEDS 02-22 15:56
PROVIDERS: Emergency Medicine; Family Medicine; Internal Medicine Nephrology; Nurse Practitioner Acute Care; Physician Assistant; ADMIT Internal Medicine
PROC: 5A1D70Z Performance of Urinary Filtration, Intermittent, Less than 6 Hours Per Day (ICD-10-PCS; principal; 2020-02-20)
PROC: 5A1D70Z Performance of Urinary Filtration, Intermittent, Less than 6 Hours Per Day (ICD-10-PCS; 2020-02-22)
DX: I63.512 Cerebral infarction due to unspecified occlusion or stenosis of left middle cerebral artery (principal); N18.6 End stage renal disease; I48.20 Chronic atrial fibrillation, unspecified; I13.2 Hypertensive heart and chronic kidney disease with heart failure and with stage 5 chronic kidney disease, or end stage renal disease; I50.32 Chronic diastolic (congestive) heart failure; G93.40 Encephalopathy, unspecified; N25.81 Secondary hyperparathyroidism of renal origin; E87.1 Hypo-osmolality and hyponatremia; Z20.828 Contact with and (suspected) exposure to other viral communicable diseases; E11.22 Type 2 diabetes mellitus with diabetic chronic kidney disease; G47.33 Obstructive sleep apnea (adult) (pediatric); E87.6 Hypokalemia; D63.1 Anemia in chronic kidney disease; E88.09 Other disorders of plasma-protein metabolism, not elsewhere classified; E11.69 Type 2 diabetes mellitus with other specified complication; K21.9 Gastro-esophageal reflux disease without esophagitis; E66.9 Obesity, unspecified; Z68.32 Body mass index [BMI] 32.0-32.9, adult; Z99.2 Dependence on renal dialysis; Z87.891 Personal history of nicotine dependence; Z85.46 Personal history of malignant neoplasm of prostate; Z87.11 Personal history of peptic ulcer disease; Z79.01 Long term (current) use of anticoagulants
CPT/HCPCS: 36415; 70450; 70551; 71045; 71046; 80053; 80069; 81001; 82140; 82947; 83735; 83880; 84145; 84443; 84484; 85025; 85610; 87040; 87077; 87186; 92507; 92523; 93005; 93010; 93306; 93880; 94660; 94762; 97110; 97116; 97162; 97166; 97530; 97535; 99285-25; A9270; A9270-GY; G0480; J0881; J1644; J1940; J1956; U0002